=== PATIENT | female | born 1965 | race African-American/Black ===

== ENCOUNTER 2017-11-06 19:50 | Emergency (ER) | payer OTHER ==
[~2017-11-06] VITALS: Ht 167.6 cm; Wt 113.4 kg
[2017-11-06 20:08] VITALS: BP 165/99
== END 2017-11-07 02:21 | disposition left against medical advice (07) ==
LOC: ER 20:04
DX: M25.512 Pain in left shoulder (principal); Z53.21 Procedure and treatment not carried out due to patient leaving prior to being seen by health care provider